=== PATIENT | male | born 1980 | race Caucasian/White ===

== ENCOUNTER 2017-05-26 14:31 | Emergency (ER) | payer BC ==
[~2017-05-26] VITALS: Ht 170.2 cm; Wt 88.0 kg
[2017-05-26 14:35] VITALS: Ht 170.2 cm; Wt 88.0 kg
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
[2017-05-26] MEDS ORDERED: traMADol 50 MG TAB PO ONE (16:30)
[2017-05-26] MEDS ORDERED: IBUP-1542 PO (16:32)
[2017-05-26] MEDS ORDERED: CYCL5TAB PO (16:32)
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
== END 2017-05-26 17:00 | disposition home or self-care (01) ==
LOC: FTE 14:31
DX: S34.4XXA Injury of lumbosacral plexus, initial encounter (principal); V49.50XA Passenger injured in collision with unspecified motor vehicles in traffic accident, initial encounter
CPT/HCPCS: 72170; Z7502; Z7610